=== PATIENT | female | born 1935 ===

== ENCOUNTER 2017-09-24 11:41 | Outpatient (CLI) | payer OTHER ==
[~2017-09-24] VITALS: Ht 154.9 cm; Wt 57.2 kg
[2017-09-24] MEDS ORDERED: DERMOTIC20 ML OTIC (13:23)
== END 2017-09-24 14:50 | disposition home or self-care (01) ==
LOC: OFIC 805 11:41
DX: J31.0 Chronic rhinitis (principal); H90.3 Sensorineural hearing loss, bilateral; H61.23 Impacted cerumen, bilateral

== ENCOUNTER 2019-09-29 08:22 | Inpatient (IN) | payer OTHER ==
[~2019-09-29] VITALS: Ht 152.4 cm; Wt 55.3 kg
[~2019-09-29 08:22] MED LIST: DERMOTIC20 ML OTIC
[2019-09-29] MEDS ORDERED: ISORDIL10 MG PO (10:07)
[2019-09-29] MEDS ORDERED: PLAVIX75 MG PO (10:07)
[2019-09-29] MEDS ORDERED: METOPROLOL SUCC25 MG PO (10:07)
[2019-09-29] MEDS ORDERED: ENALAPRIL MALEAT5 MG PO (10:07)
[2019-09-29] MEDS ORDERED: ATORVASTATIN CA10 MG PO (10:08)
[2019-10-02] MEDS ORDERED: ALBUTEROL0.63 MG/3 IH (08:13)
[2019-10-02] MEDS ORDERED: LEVAQUIN750 MG PO (08:13)
[2019-10-02] MEDS ORDERED: OMEPRAZOLE MAGN20 MG PO (08:13)
== END 2019-10-02 10:57 | disposition home or self-care (01) | DRG 194 ==
LOC: ER 08:22 → MEDJ 15:53
PROVIDERS: ADMIT Internal Medicine
PROC: 3E0F7GC Introduction of Other Therapeutic Substance into Respiratory Tract, Via Natural or Artificial Opening (ICD-10-PCS; principal; 2019-09-29)
PROC: 4A033R1 Measurement of Arterial Saturation, Peripheral, Percutaneous Approach (ICD-10-PCS; 2019-09-29)
DX: J15.7 Pneumonia due to Mycoplasma pneumoniae (principal); J44.1 Chronic obstructive pulmonary disease with (acute) exacerbation; R09.02 Hypoxemia; R73.9 Hyperglycemia, unspecified